=== PATIENT | male | born 1980 | race Caucasian/White ===

== ENCOUNTER 2024-07-04 07:45 | Emergency (ER) | payer OTHER, SELFPAY ==
[2024-07-04 08:01] VITALS: BP 125/71; PULSE 111; RESP 17; TEMP 37.3; O2SAT 95; BMI 28.1
--- NOTE | 2024-07-04 08:07 | DI.RAD.S_ITS ---
PROCEDURE: XR CHEST 2V INDICATIONS: sob, cough. TECHNIQUE: 2 views of the chest were acquired. COMPARISON: None. FINDINGS: Surgical changes and devices: None. Lungs and pleura: Patchy left upper lobe infiltrate. No pleural effusions or pneumothorax. Mediastinum: Question hilar adenopathy. Heart size is normal. Bones and chest wall: No suspicious bony abnormalities. Soft tissues appear unremarkable. IMPRESSION: 1. Patchy left upper lobe infiltrate. 2. Question hilar adenopathy. Comment: Recommend CT chest for further evaluation. Dictated by: Medardo Tirado M.D. on 07/04/2024 at 8:26 Approved by: Medardo Tirado M.D. on 07/04/2024 at 8:27
[2024-07-04 09:03] LABS: Adenovirus Not Detected (Not Detect); B. parapertussis Not Detected (Not Detecte); Bordetella pertussis Not Detected (Not Detect); Chlamydophila pneumoniae Not Detected (Not Detect); Coronavirus 229E Not Detected (Not Detect); Coronavirus HKU1 Not Detected (Not Detect); Coronavirus NL 63 Not Detected (Not Detect); Coronavirus OC43 Not Detected (Not Detect); Human Metapneumovirus Not Detected (Not Detect); Human Rhinovirus/Enterovirus Not Detected (Not Detect); Influenza A Not Detected (Not Detect); Influenza B Not Detected (Not Detect); Mycoplasma pneumoniae Not Detected (Not Detect); Parainfluenza Virus 1 Not Detected (Not Detect); Parainfluenza Virus 2 Not Detected (Not Detect); Parainfluenza Virus 3 Not Detected (Not Detect); Parainfluenza Virus 4 Not Detected (Not Detect); Respiratory Syncytial Virus Not Detected (Not Detect); SARS- CoV-2 Not Detected (Not Detecte)
--- NOTE | 2024-07-04 09:37 | DI.CT.S_ITS ---
PROCEDURE: CT CHEST W CON INDICATIONS: hilar adenopathy TECHNIQUE: After the administration of intravenous contrast, 5 mm thick sections acquired from the pulmonary apices to the posterior costophrenic angles. 1 mm axial lung, 5 mm thick coronal and sagittal reformats and 7 mm axial MIP were acquired. For radiation dose reduction, the following was used: automated exposure control, adjustment of mA and/or kV according to patient size. COMPARISON: [facility], CR, XR CHEST 2V, 07/04/2024, 8:04. FINDINGS: Image quality: Diagnostic. Lower Neck: No enlarged lymph nodes. Thyroid: No thyroid nodules which require sonographic follow up, per consensus guidelines. Axillae: No enlarged lymph nodes. Chest Wall: Unremarkable. Bones: Unremarkable. Lungs and Pleura: No pneumothorax or pleural effusions. Left upper lobe and lingula bronchial thickening with associated centrilobular and tree-in-bud ground-glass and consolidative nodules. Heart: Heart size is normal. No pericardial effusion. Thoracic Vessels: The aorta and pulmonary arteries demonstrate normal size. Mediastinum and Ivon: No enlarged lymph nodes. Esophagus: No wall thickening. No hiatal hernia. Upper Abdomen: Visualized upper abdomen solid organs and bowel loops appear normal. IMPRESSION: Infectious versus inflammatory bronchiolitis of the left upper lobe and lingula. Aspiration is a consideration but less likely in this age group. Dictated by: Alejo Walsh M.D. on 07/04/2024 at 11:22 Approved by: Alejo Walsh M.D. on 07/04/2024 at 11:26
--- NOTE | 2024-07-04 09:54 | ED.GENADULT ---
HPI - General Adult General Chief complaint: Upper Respiratory Symptoms Stated complaint: Fever, Body ache , cough Time Seen by Provider: 07/04/24 09:36 Source: patient Mode of arrival: Family Vehicle History of Present Illness HPI narrative: 43-year-old gentleman 21 years is active [employer] [place] no significant medical problems comes in complaining of fevers, body aches, cough. Those symptoms have been going on for approximately day and a half last night he had a fever to 102 and today was 102.5. Son recently treated for walking pneumonia and resolve nicely. He has never had similar symptoms. He has not describing night sweats, weight loss, nausea, vomiting, diarrhea. No palpitations or chest pain Related Data Previous Rx's Medication Instructions Recorded azithromycin 500 mg tablet 500 mg PO DAILY 5 days #6 tabs 07/04/24 Allergies Allergy/AdvReac Type Severity Reaction Status Date / Time No Known Drug Allergies Allergy Verified 07/04/24 08:04 Review of Systems Review of Systems Narrative: Pertinent positive and negative findings as per HPI Patient History Social History Smoking Status: Current every day smoker Smoking Status: Current every day smoker tobacco type: vaping alcohol intake frequency: holidays/special occasions only Substance Use Type: does not use Exam Initial Vital Signs Initial Vital Signs: Vital Signs Temperature 99.1 F 07/04/24 08:01 Pulse Rate 111 H 07/04/24 08:01 Respiratory Rate 17 07/04/24 08:01 Blood Pressure 125/71 07/04/24 08:01 Pulse Oximetry 95 07/04/24 08:01 Oxygen Delivery Method Room Air 07/04/24 08:01 General: Healthy appearing, appears to feel unwell but not toxic. Able to give a complete and coherent history. Well-nourished well-developed HEENT: Moist mucous membranes, normal sclera with reactive pupils, Neck: No JVD, Respiratory: Lungs with rhonchi in the left upper lobe otherwise unremarkable no accessory muscle use Cardiac: Regular rate and rhythm no murmurs no bruits Abdomen: Soft, nontender, good bowel tones, no flank pain Skin: Warm and dry, no rashes Neurologic: Grossly neurologically intact with no obvious asymmetries or abnormalities Extremities: No trauma, well perfused Psych: Cooperative, appropriate insight and affect Course Orders Ordered: ED Orders 07/04/24 08:05 Respiratory Panel (Film Array) Stat 07/04/24 08:07 XR chest 2V Stat 07/04/24 09:37 CT chest w con Stat 07/04/24 09:45 Complete Blood Count AUTO DIFF Stat Comprehensive Metabolic Panel Stat HIV 1 & 2 Ab/Ag 4th Gen Combo Stat Lactate (Lactic Acid) Stat NT-proBNP (BNP-Adult 18+) Stat 07/04/24 10:05 Blood Culture Stat Vital Signs Vital signs: Vital Signs - 8 hr 07/04/24 08:01 Temperature 99.1 F Pulse Rate 111 H Respiratory Rate 17 Blood Pressure 125/71 Pulse Oximetry 95 Oxygen Delivery Method Room Air Medical Decision Making Lab Data 07/04/24 09:45 07/04/24 09:45 Labs: Lab Results 07/04/24 07/04/24 Range/Units 08:05 09:45 WBC 7.9 (4.5-11.0) X10^3/uL RBC 4.84 (4.5-5.9) X10^6/uL Hgb 14.5 (13.5-17.5) g/dL Hct 43.2 (41-53) % MCV 89.4 (80-100) fL MCH 29.9 (26-34) PG MCHC 33.5 (30-36) % RDW 13.2 (11.6-14.8) % Plt Count 250 (150-400) X10^3/uL Neut % (Auto) 76.2 H (50-75) % Lymph % (Auto) 13.8 L (25-40) % Newton % (Auto) 9.5 (3-14) % Eos % (Auto) 0.2 L (2-4) % Baso % (Auto) 0.3 (0-2) % Neut # (Auto) 6100 (6506-0076) /uL Lymph # (Auto) 1100 (8482-8733) /uL Newton # (Auto) 800 (0-900) /uL Eos # (Auto) 0 (0-450) /uL Baso # (Auto) 0 (0-100) /uL Sodium 134 L (137-145) mmol/L Potassium 4.0 (3.4-5.1) mmol/L Chloride 100 (98-107) mmol/L Carbon Dioxide 24 (22-32) mmol/L BUN 8 L (9-20) mg/dL Creatinine 1.06 (0.66-1.25) mg/dL Estimated GFR > 60 (>60) mL/min BUN/Creatinine Ratio 7.5 (6-22) Glucose 98 (70-100) mg/dL Lactate 1.0 (0.7-2.1) mmol/L Calcium 8.9 (8.4-10.2) mg/dL Total Bilirubin 0.7 (0.2-1.3) mg/dL AST 49 (17-59) IU/L ALT 24 (<50) IU/L Alkaline Phosphatase 53 (38-126) U/L NT-Pro-B Natriuret Pep 83 (<125) pg/mL Total Protein 8.1 (6.3-8.2) g/dL Albumin 4.7 (3.5-5.0) g/dL Globulin 3.4 (1.7-4.1) g/dL Albumin/Globulin Ratio 1.4 (1.0-2.8) Chlamy pneumoniae PCR Not detected (Not Detect) Adenovirus (PCR) Not detected (Not Detect) B. pertussis DNA (PCR) Not detected (Not Detect) B.parapertussis DNA PCR Not detected (Not Detecte) Coronavirus OC43 (PCR) Not detected (Not Detect) Coronavirus HKU1 (PCR) Not detected (Not Detect) Coronavirus 229E (PCR) Not detected (Not Detect) SARS-CoV-2 (PCR) Not detected (Not Detecte) Coronavirus NL63 (PCR) Not detected (Not Detect) HIV 1&2 Ab/P24 Ag 4thGn Negative (NEGATIVE) Human Metapneumovir PCR Not detected (Not Detect) Influenza Type A (PCR) Not detected (Not Detect) Influenza Type B (PCR) Not detected (Not Detect) M. pneumoniae (PCR) Not detected (Not Detect) Parainfluenza 1 (PCR) Not detected (Not Detect) Parainfluenza 2 (PCR) Not detected (Not Detect) Parainfluenza 3 (PCR) Not detected (Not Detect) Parainfluenza 4 (PCR) Not detected (Not Detect) RSV (PCR) Not detected (Not Detect) Entero/Rhino (PCR) Not detected (Not Detect) Imaging Data CT scan - chest: Radiologist's Impression: PROCEDURE: CT CHEST W CON INDICATIONS: hilar adenopathy TECHNIQUE: After the administration of intravenous contrast, 5 mm thick sections acquired from the pulmonary apices to the posterior costophrenic angles. 1 mm axial lung, 5 mm thick coronal and sagittal reformats and 7 mm axial MIP were acquired. For radiation dose reduction, the following was used: automated exposure control, adjustment of mA and/or kV according to patient size. COMPARISON: [facility], CR, XR CHEST 2V, 07/04/2024, 8:04. FINDINGS: Image quality: Diagnostic. Lower Neck: No enlarged lymph nodes. Thyroid: No thyroid nodules which require sonographic follow up, per consensus guidelines. Axillae: No enlarged lymph nodes. Chest Wall: Unremarkable. Bones: Unremarkable. Lungs and Pleura: No pneumothorax or pleural effusions. Left upper lobe and lingula bronchial thickening with associated centrilobular and tree-in-bud ground-glass and consolidative nodules. Heart: Heart size is normal. No pericardial effusion. Thoracic Vessels: The aorta and pulmonary arteries demonstrate normal size. Mediastinum and Ivon: No enlarged lymph nodes. Esophagus: No wall thickening. No hiatal hernia. Upper Abdomen: Visualized upper abdomen solid organs and bowel loops appear normal. IMPRESSION: Infectious versus inflammatory bronchiolitis of the left upper lobe and lingula. Aspiration is a consideration but less likely in this age group. Dictated by: Alejo Walsh M.D. on 07/04/2024 at 11:22 MDM Narrative Medical decision making narrative: CC: Cough body aches fever Data collected from: patient Differential considered: Viral syndrome, bacterial pneumonia Exam documented above, pertinent findings include: Appears to not feel well but he has not toxic. Rhonchi in the left upper lobe posteriorly, no accessory muscle use Lab Test results independently reviewed as above. Pertinent findings: Respiratory panel shows no acute respiratory viruses Due to mediastinal adenopathy, an HIV test was obtained and is negative Chemistries are reassuring with no liver studies CBC is reassuring without leukocytosis Imaging studies independently reviewed: Chest x-ray is read as patchy upper lobe infiltrate with concerning mediastinal adenopathy and CT scan is recommended Discussion: 43-year-old gentleman with what appears to be a viral upper respiratory syndrome. No significant leukocytosis. His son was treated for presumptive mycoplasma pneumonia, PCR testing today indicates that is not part of Marcio's infectious process. CT scan shows no other pathologic finding for the mediastinal adenopathy. It does look like he has a bronchiolitis affecting the right upper bronchi which correlates with his clinical exam. At this point given timing and low white blood cell count I suspect that this is viral. Findings, reason for workup and all results reviewed with the patient. We did discuss options. Currently, I do not think that he needs antibiotics. We did discuss worsening symptoms in the next 2-3 days. If he notices fevers or continuing her or he begins to have a productive cough than we will have him fill a prescription for azithromycin. At this point there was no indication for hospitalization or additional imaging. He is safe for discharge Discharge Plan Departure Patient Disposition: Home Clinical Impression: Bronchiolitis Instructions: DI for Bronchiolitis Activity Restrictions/Additional Instructions: Thank you for coming in today Your chest x-ray suggested some swollen lymph nodes in the center part of your chest and because of that a CT scan of your chest was done. The CT scan does not show any tumors, masses, consolidate bacterial findings or anything else of significant concern. It also shows some swelling of the bronchi in the right upper lobe which is consistent with the coughing Rob clinical exam. The most likely explanation for this is a viral picture. We did test for multiple different viruses none of which were positive including mycoplasma pneumonia which is typically the walking pneumonia that you described with your son. I am going to suggest conservative management at this point with Tylenol, ibuprofen, cough medicine and a bit of time. If you notice that you are continuing to have fevers in the 102 or more range after 48 hours of additional conservative management, then I would fill the prescription for azithromycin that I have given you. If you find that you are getting significantly worse or feeling dramatically short of breath you need to return to the emergency department Prescriptions: New azithromycin 500 mg tablet 500 mg PO DAILY 5 Days Qty: 6 0RF Rx Instructions: Two tablets on day 1, 1 tablet daily after that Referrals: [facility] [Primary Care Provider] - Stand Alone Forms: Patient Portal/API/Survey
[2024-07-04 10:08] LABS: Add Manual Diff / Slide Review NO; Basophils Absolute Auto 0 /uL (0-100); Basophils Percent Auto 0.3 % (0-2); Eosinophils Absolute Auto 0 /uL (0-450); Eosinophils Percent Auto 0.2 % (2-4); Hematocrit 43.2 % (41-53); Hemoglobin 14.5 g/dL (13.5-17.5); Lymphocytes Absolute Auto 1100 /uL (1100-4500); Lymphocytes Percent Auto 13.8 % (25-40); Mean Corpuscular HGB Conc 33.5 % (30-36); Mean Corpuscular Hemoglobin 29.9 PG (26-34); Mean Corpuscular Volume 89.4 fL (80-100); Monocytes Absolute Auto 800 /uL (0-900); Monocytes Percent Auto 9.5 % (3-14); Neutrophils Absolute Auto 6100 /uL (1500-7000); Neutrophils Percent Auto 76.2 % (50-75); Platelet Count 250 X10^3/uL (150-400); Red Blood Cell Count 4.84 X10^6/uL (4.5-5.9); Red Cell Distribution Width 13.2 % (11.6-14.8); White Blood Cell Count 7.9 X10^3/uL (4.5-11.0)
[2024-07-04 10:17] LABS: Alanine Aminotransferase 24 IU/L (<50); Albumin 4.7 g/dL (3.5-5.0); Albumin Globulin Ratio 1.4 (1.0-2.8); Alkaline Phosphatase 53 U/L (38-126); Aspartate Aminotransferase 49 IU/L (17-59); BUN Creatinine Ratio 7.5 (6-22); Bilirubin Total 0.7 mg/dL (0.2-1.3); Blood Urea Nitrogen 8 mg/dL (9-20); Calcium 8.9 mg/dL (8.4-10.2); Carbon Dioxide 24 mmol/L (22-32); Chloride 100 mmol/L (98-107); Estimated Glomerular Filt Rate > 60 mL/min (>60); Globulin 3.4 g/dL (1.7-4.1); Glucose 98 mg/dL (70-100); HEMOLYSIS < 15 (0-50); Sodium 134 mmol/L (137-145); Total Protein 8.1 g/dL (6.3-8.2)
[2024-07-04 10:26] LABS: NT-proBNP (BNP-Adult 18+) 83 pg/mL (<125)
[2024-07-04 10:58] LABS: HIV 1 & 2 Ab/Ag 4th Gen Combo NEGATIVE (NEGATIVE)
[2024-07-04 12:15] VITALS: TEMP 39.3
[2024-07-04 12:21] VITALS: TEMP 39.3
[2024-07-04] MEDS: IBUPROFEN 400 MG TABLET 600 MG PO (12:21)
== END 2024-07-04 12:25 | disposition home or self-care (01) ==
PROVIDERS: Emergency Provider Emergency Medicine
DX: J21.9 Acute bronchiolitis, unspecified (principal); Z11.52 Encounter for screening for COVID-19
CPT/HCPCS: 36415; 71046; 71260; 80053; 83605; 83880; 85025; 87040; 87389; 87633; 99283; 99284